=== PATIENT | male | born 1985 | race Two or more races ===

== ENCOUNTER 2024-06-26 13:23 | Inpatient (IN) | payer BC ==
[2024-06-26 13:49] VITALS: BMI 25.3
[2024-06-26] MEDS ORDERED: NICOTINE POLACRILEX 2 MG LOZENGE BC PRN (14:23)
[2024-06-26] MEDS ORDERED: POLYETHYLENE GLYCOL (HEALTHYLAX) 3350 17 GM PACKET PO PRN (14:23)
[2024-06-26] MEDS ORDERED: ACETAMINOPHEN 325 MG TABLET (FP) PO PRN (14:23)
[2024-06-26] MEDS ORDERED: guaiFENesin 600 MG TABLET.ER (FP) PO PRN (14:23)
[2024-06-26] MEDS ORDERED: P-EPHED 60MG/TRIPROLIDI 2.5MG TABLET PO PRN (14:23)
[2024-06-26] MEDS ORDERED: hydrOXYzine PAMOATE 25 MG CAPSULE (FP) PO PRN (14:23)
[2024-06-26] MEDS ORDERED: LOPERAMIDE HCL 2 MG CAPSULE PO PRN (14:23)
[2024-06-26] MEDS ORDERED: BENZONATATE 200 MG CAPSULE PO PRN (14:23)
[2024-06-26] MEDS ORDERED: BENZOCAINE/MENTHOL (CHLORASEPTIC ) LOZENGE MM PRN (14:23)
[2024-06-26] MEDS ORDERED: MAG HYDROX/AL HYDROX/SIMETH 30 ML UNIT-DOSE CUP PO PRN (14:23)
[2024-06-26] MEDS ORDERED: IBUPROFEN 600 MG TABLET (FP) PO PRN (14:23)
[2024-06-26] MEDS ORDERED: MAGNESIUM HYDROX 2400MG/30ML ORAL SUSPENSION 30 ML CUP PO PRN (14:23)
[2024-06-26] MEDS ORDERED: IBUPROFEN 400 MG TABLET (FP) PO PRN (14:23)
[2024-06-26] MEDS ORDERED: DOCUSATE SODIUM 100 MG CAPSULE (FP) PO PRN (14:23)
[2024-06-26] MEDS: MELATONIN 5 MG TABLETS PO SCH (21:11)
[2024-06-26] MEDS: THIAMINE 100 MG TABLET PO SCH (21:11)
[2024-06-27] MEDS: PRENATAL VITAMINS W/ FOLIC ACID TABLET (FP) PO SCH (09:52)
[2024-06-27] MEDS: FLUoxetine HCL 20 MG CAPSULE PO SCH (11:00)
[2024-06-27] MEDS: PANTOPRAZOLE 20 MG TABLET PO SCH (21:27)
[2024-06-27] MEDS ORDERED: PATIENT'S OWN MEDICATION (NON-FORMULARY) (Fluoxetine Hcl [Prozac] 40 MG Capsule) PO SCH (22:00)
[2024-06-28 16:16] LABS: URINE APPEARANCE CLEAR; URINE BILIRUBIN NEGATIVE (NEGATIVE); URINE COLOR YELLOW; URINE GLUCOSE (UA) NEGATIVE (NEGATIVE); URINE KETONE NEGATIVE (NEGATIVE); URINE LEUK ESTERASE NEGATIVE (NEGATIVE); URINE NITRITE NEGATIVE (NEGATIVE); URINE PROTEIN NEGATIVE (NEGATIVE); URINE UROBILINOGEN 0.2 mg/dL (0.2-1.0)
[2024-06-29] MEDS: NALTREXONE HCL 50 MG TABLET PO SCH (09:53)
[2024-06-29 13:24] LABS: HEMATOCRIT 42.2 % (35.4-49); HEMOGLOBIN 14.4 GM/dL (11.7-16.9); MCH 29.4 pg (25.7-33.7); MCHC 34.1 g/dl (32.0-35.9); MEAN CELL VOLUME 86.2 fl (80-96); MEAN PLT VOLUME 7.7 fl (7.5-11.1); PLATELET COUNT 235 10^3/uL (134-434); RDW 12.9 % (11.9-15.9); WHITE BLOOD COUNT 4.5 K/mm3 (4.0-10.0)
[2024-06-29 13:30] LABS: INR 0.96 (0.83-1.09)
[2024-06-29 13:46] LABS: POTASSIUM 4.5 mmol/L (3.5-5.1)
[2024-06-29 13:48] LABS: CALCIUM 9.4 mg/dL (8.5-10.1)
[2024-06-29 13:49] LABS: ALBUMIN 3.8 g/dl (3.4-5.0); BLOOD UREA NITROGEN 15.4 mg/dL (7-18); MAGNESIUM 2.1 mg/dL (1.8-2.4)
[2024-06-29 13:53] LABS: BILIRUBIN,TOTAL 0.5 mg/dL (0.2-1)
[2024-06-29 13:54] LABS: TOT PROT 6.7 g/dl (6.4-8.2)
[2024-06-30] MEDS: NALTREXONE HCL 50 MG TABLET PO SCH (10:35)
[2024-06-30] MEDS: CHOLECALCIFEROL (VIT D3) 400 UNIT (10 MCG) TABLET PO SCH (15:19)
[2024-06-30] MEDS: NICOTINE POLACRILEX 2 MG GUM BUC PRN (21:46)
[2024-07-09] MEDS: NALTREXONE MICROSPHERES (VIVITROL) 380 MG DISP.SYRIN IM ONE (10:00)
[2024-07-09] MEDS: NALTREXONE HCL 50 MG TABLET PO SCH (12:07)
[2024-07-23] MEDS: NALTREXONE MICROSPHERES (VIVITROL) 380 MG DISP.SYRIN IM ONE (10:30)
[2024-07-24 07:19] VITALS: BP 109/77; PULSE 79; RESP 17; TEMP 97.8
== END 2024-07-24 09:11 | disposition home or self-care (01) | DRG 772 ==
LOC: YASAS 13:23 → Y3E 16:23
PROVIDERS: ADMIT Allergy & Immunology; ATTEND Psychiatry & Neurology Pain Medicine
PROC: HZ42ZZZ Group Counseling for Substance Abuse Treatment, Cognitive-Behavioral (ICD-10-PCS; principal; 2024-06-26)
DX: F10.20 Alcohol dependence, uncomplicated (principal); F17.210 Nicotine dependence, cigarettes, uncomplicated; F19.24 Other psychoactive substance dependence with psychoactive substance-induced mood disorder; F32.A Depression, unspecified; E72.20 Disorder of urea cycle metabolism, unspecified; K21.9 Gastro-esophageal reflux disease without esophagitis
CPT/HCPCS: 36415; 80053; 80305; 80307; 81003; 82140; 82306; 83735; 85027; 85610; 86780; 87811; 93005; 93010; J2315